=== PATIENT | male | born 1990 | race African-American/Black ===

== ENCOUNTER 2017-03-17 15:39 | Emergency (ER) | payer SELFPAY ==
[~2017-03-17] VITALS: Ht 185.4 cm; Wt 108.9 kg
[~2017-03-17 15:39] MED LIST: FLUO5DRO5 OD; TRAM-48 PO
[2017-03-17 15:46] VITALS: BP 146/73
[2017-03-17] MEDS ORDERED: CYCL10TA2 PO (16:00)
[2017-03-17] MEDS ORDERED: NAPR500T3 PO (16:00)
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
[2017-03-17 16:01] LABS: BILIRUBIN,URINE NEGATIVE (NEG); GLUCOSE,URINE NEGATIVE (NEG); NITRITE,URINE NEGATIVE (NEG); PH,URINE 5.5; PROTEIN,URINE NEGATIVE (NEG-TRACE); UROBILINOGEN,URINE 0.2 mg/dL (0.2 mg/dL)
[2017-03-17 16:10] LABS: BACTERIA,URINE FEW /HPF (0-FEW); RBC,URINE 0 /HPF (0-2); SQUAMOUS EPITHELIAL CELL,UR OCC /LPF; WBC,URINE OCC /HPF (0-4)
[2017-03-17] MEDS ORDERED: cefTRIAXone IM 250 MG VIAL IM ONE (16:15)
[2017-03-17] MEDS ORDERED: metroNIDAZOLE 500 MG TABLET PO ONE (16:15)
[2017-03-17] MEDS ORDERED: CYCLOBENZAPRINE 10 MG TABLET. PO ONE (16:15)
[2017-03-17] MEDS ORDERED: AZITHROMYCIN 250 MG TABLET. PO ONE (16:15)
[2017-03-17] MEDS ORDERED: CIPR500T94 PO (16:47)
== END 2017-03-17 16:53 | disposition home or self-care (01) ==
LOC: ER 15:39
DX: N39.0 Urinary tract infection, site not specified (principal); R20.0 Anesthesia of skin; R20.2 Paresthesia of skin; J45.909 Unspecified asthma, uncomplicated; I10 Essential (primary) hypertension; Z11.3 Encounter for screening for infections with a predominantly sexual mode of transmission
CPT/HCPCS: 81001; 87086; 87491; 87591; 96372; 99284; J0696; Q0144

== ENCOUNTER 2017-10-24 15:49 | Emergency (ER) | payer SELFPAY | END 2017-10-24 17:11 | disposition left against medical advice (07) | LOC: ER 15:49 | DX: R05 Cough (principal); Z53.21 Procedure and treatment not carried out due to patient leaving prior to being seen by health care provider ==

== ENCOUNTER 2020-11-09 19:06 | Emergency (ER) | payer SELFPAY ==
[~2020-11-09] VITALS: Ht 185.4 cm; Wt 109.0 kg
[~2020-11-09 19:06] MED LIST changes: +CIPR500T94 PO; +CYCL10TA2 PO; +NAPR-514 PO
[2020-11-09 21:06] VITALS: BP 165/107
[2020-11-09] MEDS ORDERED: PRED50TA PO (23:00)
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
[2020-11-09] MEDS ORDERED: LIDOCAINE 2% VISCOUS 15 ML SOLUTION. SWSW ONE (23:15)
[2020-11-09] MEDS ORDERED: predniSONE 10 MG TABLET PO ONE (23:15)
--- NOTE | 2020-11-11 09:20 | NUR ---
IP: Attempted to contact pt concerning COVID results. Phone number provided is not his number according to person who answered the phone. She stated she did not know him. Number to tooth cutter contact wheel is also not correct.
== END 2020-11-09 23:28 | disposition home or self-care (01) ==
LOC: ER 19:06
DX: J02.9 Acute pharyngitis, unspecified (principal); Z20.822 Contact with and (suspected) exposure to COVID-19; I10 Essential (primary) hypertension; J06.9 Acute upper respiratory infection, unspecified; J45.909 Unspecified asthma, uncomplicated; F17.200 Nicotine dependence, unspecified, uncomplicated; F10.10 Alcohol abuse, uncomplicated; Z98.890 Other specified postprocedural states
CPT/HCPCS: 87070; 87880; 99283; J7512; U0003; U0005; 87147

== ENCOUNTER 2021-08-09 19:30 | Emergency (ER) | payer OTHER ==
[~2021-08-09] VITALS: Ht 185.4 cm; Wt 125.0 kg
[~2021-08-09 19:30] MED LIST changes: +CYCL10TA19 PO; -CYCL10TA2 PO; +PRED50TA PO
[2021-08-09] MEDS ORDERED: VANCOMYCIN PER PHARMACY MC PRN (23:15)
[2021-08-09] MEDS ORDERED: PIPERACILLIN/TAZOBACTAM 4.5 GM in IV NORMAL SALINE 100ML 100 ML IV ONE (23:30)
[2021-08-09] MEDS ORDERED: PIPERACILLIN/TAZOBACTAM 4.5 GM in IV DEXTROSE 5% 100ML 100 ML IV ONE (23:30)
[2021-08-09] MEDS: IV NORMAL SALINE 1000ML BAG 1,000 ML IV SCH (23:30)
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
[2021-08-09 23:48] LABS: BASO % 0 % (0-3); EOS # 0.1 x10^3/uL (0.0-0.7); EOS % 3 % (0-3); HEMATOCRIT 40.2 % (39.0-53.0); HEMOGLOBIN 13.6 g/dL (13.0-17.5); LYMPH % 21 % (24-48); MEAN CORPUSCULAR HEMOGLOBIN 30 pg (25-35); MEAN CORPUSCULAR HGB CONC 34 g/dL (31-37); MEAN CORPUSCULAR VOLUME 88 fL (79-100); MONO # 0.5 x10^3/uL (0.0-1.1); MONO % 11 % (0-9); NEUT # 3.2 x10^3/uL (1.8-7.7); NEUT % 66 % (31-73); PLATELET COUNT 240 x10^3/uL (140-400); RED CELL DISTRIBUTION WIDTH 13.7 % (11.5-14.5); WHITE BLOOD COUNT 4.8 x10^3/uL (4.0-11.0)
[2021-08-09] MEDS: MORPHINE SULFATE 4 MG/ML INJ. IV/SQ PRN (23:51)
[2021-08-09 23:58] LABS: CALCIUM 9.1 mg/dL (8.5-10.1); CREATININE 1.1 mg/dL (0.7-1.3); GFR 93.9; POTASSIUM 4.3 mmol/L (3.5-5.1)
[2021-08-10 00:04] LABS: ALBUMIN 3.6 g/dL (3.4-5.0); ALBUMIN/GLOBULIN RATIO 0.8 (1.0-1.7); TOTAL BILIRUBIN 0.4 mg/dL (0.2-1.0); TOTAL PROTEIN 8.4 g/dL (6.4-8.2)
[2021-08-10] MEDS ORDERED: CONTRAST GIVEN. MC PRN (00:15)
[2021-08-10] MEDS: IV NORMAL SALINE 1000ML BAG 1,000 ML IV SCH (00:30)
[2021-08-10] MEDS ORDERED: IOHEXOL 300 MG/ML 100ML VIAL. IV ONE (00:30)
--- NOTE | 2021-08-10 00:41 | RAD ---
Maxillofacial CT without contrast dated 08/10/2021. COMPARISON: None. CLINICAL INDICATION: Left earlobe abscess. TECHNIQUE: Contiguous axial imaging of the maxillofacial bones obtained following the intravenous administration of 70 cc Omnipaque 300. One or more of the following individualized dose reduction techniques were utilized for this examinat ion: 1. Automated exposure control 2. Adjustment of the mA and/or kV according to patient size 3. Use of iterative reconstruction technique FINDINGS: Rim-enhancing pocket of fluid at the left earlobe extending inferiorly into the subcutaneous tissues of the left cheek. This measures 2.2 x 3.2 x 3.8 cm. There is edema in the adjacent subcutaneous tiss ues. No soft tissue gas. The collection abuts the outer capsule of the left parotid gland which is otherwise unremarkable. The right parotid gland is unremarkable. Submandibular glands are symmetric. Mildly enlarged bilateral c ervical chain lymph nodes, nonspecific. There is some focal soft tissue edema at the right cheek without drainable fluid collection. Visualiz ed soft tissue structures are otherwise unremarkable. There is minimal mucosal thickening of the righ t maxillary sinus and bilateral ethmoid air cells. Mastoid air cells and middle ears are clear. No ap parent calvarial abnormality. Limited imaged portions of the brain parenchyma are unremarkable. IMPRESSION: 1. Focal fluid collection within the left earlobe with extension inferiorly into the subcutaneous tis sues of the left cheek. This is nonspecific and could represent abscess or other cystic mass. Correla te clinically. 2. There is also some focal edema within the subcutaneous tissues of the right cheek, nonspecific. No underlying fluid collection on the right. 3. Mild bilateral cervical chain lymphadenopathy, likely reactive. Follow-up imaging may be warranted to ensure stability/resolution. 4. Mild sinus disease. Electronically signed by: Lucas Welsh MD (08/10/2021 12:38 AM) [facility]
[2021-08-10] MEDS ORDERED: VANCOMYCIN 2 GM in IV NORMAL SALINE 500ML BAG 500 ML IV ONE (01:00)
[2021-08-10] MEDS ORDERED: LIDOCAINE 1% Multi-Dose 20 ML VIAL. INJ ONE (01:30)
[2021-08-10] MEDS: MORPHINE SULFATE 4 MG/ML INJ. IV/SQ PRN (01:45)
[2021-08-10 03:00] VITALS: BP 170/90
[2021-08-10] MEDS ORDERED: IOHEXOL 300 MG/ML 100ML VIAL. ONE (07:48)
== END 2021-08-10 02:38 ==
LOC: ER 19:30 → EEVIPCON 19:30 → ER 08-10 02:38
DX: H60.12 Cellulitis of left external ear (principal); L02.01 Cutaneous abscess of face; J45.909 Unspecified asthma, uncomplicated; I10 Essential (primary) hypertension; F17.200 Nicotine dependence, unspecified, uncomplicated; F10.20 Alcohol dependence, uncomplicated; Y90.9 Presence of alcohol in blood, level not specified
CPT/HCPCS: 10060; 36415; 70487; 80053; 83605; 84145; 85025; 87040; 87071; 87075; 87076; 87077; 96361; 96365; 96375; 96376; 99285; J2270; J2543; J3490; J7030; J7060